=== PATIENT | female | born 1945 | race Caucasian/White ===

== ENCOUNTER → 2017-07-25 | Outpatient (CLI) | payer MEDICARE, OTHER | LOC: LAB SHORT 15:33 → LAB 15:33 | PROVIDERS: Obstetrics & Gynecology Gynecology | DX: Z91.89 Other specified personal risk factors, not elsewhere classified (principal) | CPT/HCPCS: 87624; G0123 ==

== ENCOUNTER → 2023-03-30 | Outpatient (CLI) | payer MEDICARE ==
[2023-04-03 12:32] LABS: Stool Occult Bld Immuno 1 Positive (NEGATIVE)
== END ==
LOC: LAB SHORT 12:11
PROVIDERS: Nurse Practitioner
DX: D50.9 Iron deficiency anemia, unspecified (principal)
CPT/HCPCS: G0328

== ENCOUNTER 2024-04-03 12:26 | Day surgery (SDC) | payer MEDICARE, OTHER ==
[~2024-04-03] VITALS: Ht 149.9 cm; Wt 26.3 kg
[~2024-04-03 12:26] MED LIST: ALLEGRA ALLERG180 MG; Balanced Salt Epinephrine Irrigation Solution 500 mL IR SCH; CLIMARA1 EACH; Diazepam 2 MG Tab PO PRN; ESCI10; GABA100; LEVSOD75; Lidocaine HCl/Pf 1% 5 ML VIAL XX SCH; METF500; METO25ER; Moxifloxacin HCL 0.5 MG/0.1 ML 0.4MLSYR LEFTEYE SCH; OLME20; OMEP20ER; Ondansetron 4 MG SoluTab MM PRN; PHENYLEPHRINE\\TROPICAMIDE\\TETRACAINE OPHTHALMIC DILATING SOLN LEFTEYE PRN; PROG100; Povidone-Iodine 450 DROP/30 ML Solution LEFTEYE SCH; Povidone-Iodine 450 DROP/30 ML Solution ONE; SPIRONOLACTONE25 MG; Tetracaine HCl/Pf 0.5% Opth Soln 4 ml ONE; Triamcinolone Inj Susp 40 MG / ML 1ML Vial INJ SCH; Triamcinolone Inj Susp 40 MG / ML 1ML Vial ONE; VITAMIN D350 MC3; diazePAM 2 MG,diazePAM 5 MG PO SCH
[2024-04-03] MEDS ORDERED: KRILL OIL 1,001 EACH PO (13:34)
[2024-04-03] MEDS ORDERED: ACET500 (13:34)
[2024-04-03] MEDS ORDERED: Midazolam HCl 1MG / ML 2ML Vial ONE (14:02)
[2024-04-03] MEDS ORDERED: FentaNYL Citrate 50 MCG/ML 2 ML Injection ONE (14:02)
[2024-04-03 14:58] VITALS: BP 112/85
== END 2024-04-03 14:55 | disposition home or self-care (01) ==
LOC: ORSCSDS 12:26
PROVIDERS: Ophthalmology
PROC: 08RK3JZ Replacement of Left Lens with Synthetic Substitute, Percutaneous Approach (ICD-10-PCS; principal; 2024-04-03 14:00)
DX: H25.813 Combined forms of age-related cataract, bilateral (principal); H52.202 Unspecified astigmatism, left eye; H04.123 Dry eye syndrome of bilateral lacrimal glands; I10 Essential (primary) hypertension; K21.9 Gastro-esophageal reflux disease without esophagitis; E03.9 Hypothyroidism, unspecified; Z79.899 Other long term (current) drug therapy
CPT/HCPCS: 82947; J2250; J3010; J3301; V2632

== ENCOUNTER 2024-04-10 12:17 | Day surgery (SDC) | payer MEDICARE, OTHER ==
[~2024-04-10] VITALS: Ht 149.9 cm; Wt 80.6 kg
[~2024-04-10 12:17] MED LIST changes: +ACET500; -Diazepam 2 MG Tab PO PRN; +KRILL OIL 1,001 EACH PO; -Moxifloxacin HCL 0.5 MG/0.1 ML 0.4MLSYR LEFTEYE SCH; +Moxifloxacin HCL 0.5 MG/0.1 ML 0.4MLSYR RIGHTEYE SCH; +NS 500 ML IV ONE; -Ondansetron 4 MG SoluTab MM PRN; -PHENYLEPHRINE\\TROPICAMIDE\\TETRACAINE OPHTHALMIC DILATING SOLN LEFTEYE PRN; +PHENYLEPHRINE\\TROPICAMIDE\\TETRACAINE OPHTHALMIC DILATING SOLN RIGHTEYE PRN; -Povidone-Iodine 450 DROP/30 ML Solution LEFTEYE SCH; +Povidone-Iodine 450 DROP/30 ML Solution RIGHTEYE SCH; -diazePAM 2 MG,diazePAM 5 MG PO SCH
[2024-04-10] MEDS ORDERED: NS 500 ML IV ONE (13:00)
[2024-04-10] MEDS ORDERED: FentaNYL Citrate 50 MCG/ML 2 ML Injection ONE (13:21)
[2024-04-10] MEDS ORDERED: Midazolam HCl 1MG / ML 2ML Vial ONE (13:21)
[2024-04-10] MEDS ORDERED: Acetaminophen 500 MG Tab ONE (14:14)
[2024-04-10 14:17] VITALS: BP 114/73
--- NOTE | 2024-04-10 14:31 | NUR ---
04/10/24 1431 Haydee Campbell SON BROUGHT TO BEDSIDE
== END 2024-04-10 14:47 | disposition home or self-care (01) ==
LOC: ORSCSDS 12:17
PROVIDERS: Ophthalmology
PROC: 08RJ3JZ Replacement of Right Lens with Synthetic Substitute, Percutaneous Approach (ICD-10-PCS; principal; 2024-04-10 14:00)
DX: H25.811 Combined forms of age-related cataract, right eye (principal); Z96.1 Presence of intraocular lens; I12.9 Hypertensive chronic kidney disease with stage 1 through stage 4 chronic kidney disease, or unspecified chronic kidney disease; N18.9 Chronic kidney disease, unspecified; K21.9 Gastro-esophageal reflux disease without esophagitis; E03.9 Hypothyroidism, unspecified; Z79.899 Other long term (current) drug therapy
CPT/HCPCS: A9270; J2250; J3010; J3301; J7040; V2632

== ENCOUNTER 2024-12-01 09:18 | Day surgery (SDC) | payer MEDICARE, OTHER ==
[~2024-12-01 09:18] MED LIST changes: -Balanced Salt Epinephrine Irrigation Solution 500 mL IR SCH; -Lidocaine HCl/Pf 1% 5 ML VIAL XX SCH; -Moxifloxacin HCL 0.5 MG/0.1 ML 0.4MLSYR RIGHTEYE SCH; -NS 500 ML IV ONE; -PHENYLEPHRINE\\TROPICAMIDE\\TETRACAINE OPHTHALMIC DILATING SOLN RIGHTEYE PRN; -Povidone-Iodine 450 DROP/30 ML Solution ONE; -Povidone-Iodine 450 DROP/30 ML Solution RIGHTEYE SCH; -Tetracaine HCl/Pf 0.5% Opth Soln 4 ml ONE; -Triamcinolone Inj Susp 40 MG / ML 1ML Vial INJ SCH; -Triamcinolone Inj Susp 40 MG / ML 1ML Vial ONE
== END 2024-12-01 23:00 | disposition home or self-care (01) ==
LOC: MOI US 09:18
DX: C50.911 Malignant neoplasm of unspecified site of right female breast (principal)
CPT/HCPCS: 19285; 77065; A4648

== ENCOUNTER 2024-12-05 09:47 | Day surgery (SDC) | payer MEDICARE, OTHER ==
[~2024-12-05] VITALS: Ht 152.4 cm; Wt 81.8 kg
[2024-12-05] MEDS ORDERED: CeFAZolin Sodium 2,000 MG VIAL ONE (10:05)
[2024-12-05] MEDS ORDERED: FentaNYL Citrate 50 MCG/ML 2 ML Injection ONE (10:54)
[2024-12-05] MEDS ORDERED: Ondansetron HCl 2 MG / ML 2ML Vial ONE (11:05)
[2024-12-05] MEDS ORDERED: Dexamethasone Sod Phos 10 MG/ML 1ML VIAL ONE (11:05)
[2024-12-05] MEDS ORDERED: Bupivacaine 0.5% HCl 5 MG/ML 30MLVIAL INJ ONE (11:12)
[2024-12-05] MEDS ORDERED: ePHEDrine Sulfate 50 MG/ML 1ML Injection ONE (11:13)
--- NOTE | 2024-12-05 12:01 | NUR ---
12/05/24 1201 MIKE MCCULLOUGH PT DENIES PAIN AND NAUSEA. PT IS COMFORTABLE OXYGEN PLACED ON VIA NASAL CANNULA AT 3L INITIALLY, BUT HAD TO INCREASED TO 5L AFTER SEVERAL MINUTES. CURRENTLY OXYGEN SAT IS 97%
[2024-12-05 12:16] VITALS: BP 113/99
== END 2024-12-05 12:56 | disposition home or self-care (01) ==
LOC: ORSCSDS 09:47
PROVIDERS: Surgery
PROC: 0HBT0ZZ Excision of Right Breast, Open Approach (ICD-10-PCS; principal; 2024-12-05 11:15)
DX: C50.211 Malignant neoplasm of upper-inner quadrant of right female breast (principal); Z17.0 Estrogen receptor positive status [ER+]; Z17.21 Progesterone receptor positive status; Z17.32 Human epidermal growth factor receptor 2 negative status; E03.9 Hypothyroidism, unspecified; K21.9 Gastro-esophageal reflux disease without esophagitis; I12.9 Hypertensive chronic kidney disease with stage 1 through stage 4 chronic kidney disease, or unspecified chronic kidney disease; N18.9 Chronic kidney disease, unspecified; Z79.84 Long term (current) use of oral hypoglycemic drugs; Z79.899 Other long term (current) drug therapy
CPT/HCPCS: 76098; 82947; 88307; J0690; J1100; J2405; J2704; J3010; J7120